=== PATIENT | female | born 1950 | race Caucasian/White ===

== ENCOUNTER 2019-10-09 23:58 | Emergency (ER) | payer MEDICARE, OTHER ==
[~2019-10-09] VITALS: Ht 149.9 cm; Wt 82.1 kg
[2019-10-10] MEDS ORDERED: DEXAMETHASONE 4 MG/ML VIAL PO ONE (00:10)
--- NOTE | 2019-10-10 00:10 | NUR ---
PER PARAS GAITAN PT IS NO R/O FOR COVID 19.
--- NOTE | 2019-10-10 00:15 | NUR ---
69 Y/O F BIBA C/O CONGESTION AND CONSTIPATION X 4 DAYS. PT STATES CONSTIPATION STARTED WHEN SHE STARTED TAKING AMOXICILLIN, WHICH WAS PRESCRIBEDB Y HER DOCTOR FOR THE CONGESTION. LUNG SOUNDS CLEAR UPON AUSCULTATION, AIRWAY INTACT, NO RESPIRATORY DISTRESS NOTED. AAO X4. PMH: HTN, HIGH CHOLESTEROL, THYROID ALLERGIES: COMPAZINE
--- NOTE | 2019-10-10 00:17 | NUR ---
LAB AT BEDSIDE.
[2019-10-10 00:30] LABS: BASOPHILS % (AUTO) 0.5 % (0.0-2.0); EOSINOPHILS # (AUTO) 0.1 K/uL (0-0.4); EOSINOPHILS % (AUTO) 1.6 % (0.0-4.0); HEMATOCRIT 41.7 % (36-48); HEMOGLOBIN 14.2 g/dL (12.0-16.0); LYMPHOCYTES # (AUTO) 1.5 K/uL (2.5-16.5); MEAN CORPUSCULAR HEMOGLOBIN 32 pg (27-31); MEAN CORPUSCULAR HGB CONC 34 g/dL (33-37); MEAN CORPUSCULAR VOLUME 94.7 fL (80-94); MONOCYTES # (AUTO) 0.5 K/uL (0.8-1.0); MONOCYTES % (AUTO) 7.4 % (1.7-9.3); NEUTROPHILS # (AUTO) 4.4 K/uL (1.8-7.7); NEUTROPHILS % (AUTO) 67.5 % (42.2-75.2); PLATELET COUNT (AUTO) 211 K/uL (140-450); RED CELL DISTRIBUTION WIDTH 13.8 % (11.6-13.7); WHITE BLOOD COUNT (AUTO) 6.5 K/uL (4.8-10.8)
--- NOTE | 2019-10-10 00:31 | NUR ---
XR AT BEDSIDE.
[2019-10-10 00:45] LABS: ALBUMIN 3.9 g/dL (3.4-5.0); ANION GAP 14.1 (8-16); CARBON DIOXIDE 26.5 mmol/L (21-32); POTASSIUM 3.6 mmol/L (3.5-5.1); TOTAL BILIRUBIN 0.4 mg/dL (0.0-1.0)
[2019-10-10 01:38] VITALS: BP 157/81
--- NOTE | 2019-10-10 01:38 | NUR ---
Patient discharged with v/s stable. Written and verbal after care instructions given and explained. Patient verbalized understanding. Ambulatory with steady gait. All questions addressed prior to discharge. Advised to follow up with PMD.
== END 2019-10-10 01:38 | disposition home or self-care (01) ==
LOC: MED 23:58
DX: J06.9 Acute upper respiratory infection, unspecified (principal); Z88.8 Allergy status to other drugs, medicaments and biological substances
CPT/HCPCS: 36415; 71045; 80053; 85025; 99284; J1100; Q0092

== ENCOUNTER 2019-10-19 08:09 | Emergency (ER) | payer MEDICARE ==
[~2019-10-19] VITALS: Ht 149.9 cm; Wt 81.6 kg
[2019-10-19 08:14] VITALS: BP 158/88
--- NOTE | 2019-10-19 08:36 | NUR ---
69 Y/O FEMALE FROM HOME C/O INCREASED BLOOD PRESSURE SINCE SHE WOKE UP THIS MORNING. PT STATES SHE WOKE UP AND BP WAS 179/102. DENIES HEADACHE/BLURRED VISION. STATES SHE HAS HAD BILATERAL LEG TINGLING WITH LT KNEE PAIN X 3 DAYS. 2/10 ACHING PAIN. PT ABLE TO AMBULATE. HOB ELEVATED, PT POSITIONED FOR COMFORT.
--- NOTE | 2019-10-19 08:37 | NUR ---
DR CORNEJO AT BEDSIDE EXAMINING PT
[2019-10-19 09:08] VITALS: BP 149/87
--- NOTE | 2019-10-19 09:09 | NUR ---
Patient discharged with v/s stable. Written and verbal after care instructions given and explained. Patient alert, oriented and verbalized understanding of instructions. Ambulatory with steady gait. All questions addressed prior to discharge. ID band removed. Patient advised to follow up with PMD. Rx of TRAMADOL 50MG AND IBUPROFEN 600MG given. Patient educated on indication of medication including possible reaction and side effects. Opportunity to ask questions provided and answered.
== END 2019-10-19 09:09 | disposition home or self-care (01) ==
LOC: MED 08:09
DX: M17.0 Bilateral primary osteoarthritis of knee (principal); E11.9 Type 2 diabetes mellitus without complications; I10 Essential (primary) hypertension; E07.9 Disorder of thyroid, unspecified; Z88.8 Allergy status to other drugs, medicaments and biological substances
CPT/HCPCS: 99283

== ENCOUNTER 2019-10-22 09:44 | Emergency (ER) | payer MEDICARE ==
[~2019-10-22] VITALS: Ht 149.9 cm; Wt 81.2 kg
[2019-10-22 09:51] VITALS: BP 152/73
--- NOTE | 2019-10-22 10:02 | NUR ---
PT AMBULATED TO ER BED 7
--- NOTE | 2019-10-22 10:05 | NUR ---
ERMD BEDSIDE EVALUATING PT
--- NOTE | 2019-10-22 10:06 | NUR ---
69 YO FEMALE CO HIGH BLOOD PRESSURE SINCE THIS MORNING. PT HAS HX OF HTN AND IS TAKING MEDS TO CONTROL. MED STATES THAT SHE TOOK BP ON HOME MACHINE AND IT WAS HIGH. HER PMD ADVISED HER TO COME IN. ALL VSS.
[2019-10-22 10:41] VITALS: BP 131/65
== END 2019-10-22 10:41 | disposition home or self-care (01) ==
LOC: MED 09:44
DX: I10 Essential (primary) hypertension (principal); R05 Cough; E03.9 Hypothyroidism, unspecified
CPT/HCPCS: 99283

== ENCOUNTER 2020-06-19 18:52 | Emergency (ER) | payer MEDICARE ==
[~2020-06-19] VITALS: Ht 149.9 cm; Wt 82.1 kg
[2020-06-19 19:10] VITALS: BP 179/72
--- NOTE | 2020-06-19 20:24 | NUR ---
SEEN AND EXAMINED BY PARAS WITH ORDERS AND CARRIED OUT
[2020-06-19] MEDS ORDERED: CLONIDINE HYDROCHLORIDE 0.1 MG TAB PO ONE (20:25)
[2020-06-19 21:08] LABS: BASOPHILS # (AUTO) 0.1 K/uL (0.00-0.22); EOSINOPHILS # (AUTO) 0.1 K/uL (0-0.4); EOSINOPHILS % (AUTO) 0.7 % (0.0-4.0); HEMATOCRIT 44.9 % (36-48); HEMOGLOBIN 14.9 g/dL (12.0-16.0); LYMPHOCYTES # (AUTO) 1.8 K/uL (2.5-16.5); LYMPHOCYTES % (AUTO) 19.9 % (20.5-51.1); MEAN CORPUSCULAR HEMOGLOBIN 32 pg (27-31); MEAN CORPUSCULAR HGB CONC 33 g/dL (33-37); MEAN CORPUSCULAR VOLUME 95.8 fL (80-94); MONOCYTES # (AUTO) 0.6 K/uL (0.8-1.0); MONOCYTES % (AUTO) 6.9 % (1.7-9.3); NEUTROPHILS # (AUTO) 6.3 K/uL (1.8-7.7); NEUTROPHILS % (AUTO) 71.5 % (42.2-75.2); PLATELET COUNT (AUTO) 276 K/uL (140-450); RED BLOOD CELL COUNT(AUTO) 4.68 MIL/uL (4.20-5.40); RED CELL DISTRIBUTION WIDTH 14.3 % (11.6-13.7); WHITE BLOOD COUNT (AUTO) 8.9 K/uL (4.8-10.8)
[2020-06-19 21:21] LABS: ALBUMIN 4.1 g/dL (3.4-5.0); ANION GAP 10.7 (8-16); CARBON DIOXIDE 31.7 mmol/L (21-32); POTASSIUM 4.4 mmol/L (3.5-5.1); TOTAL BILIRUBIN 0.3 mg/dL (0.0-1.0)
--- NOTE | 2020-06-19 21:30 | NUR ---
MEDICATED PER ERMDS ORDER, TOLERATED WELL
[2020-06-19] MEDS ORDERED: CLONIDINE HYDROCHLORIDE 0.1 MG TAB ONE (21:55)
[2020-06-19 23:40] VITALS: BP 134/67
--- NOTE | 2020-06-20 00:33 | NUR ---
Patient discharged with v/s stable. Written and verbal after care instructions given and explained. Patient alert, oriented and verbalized understanding of instructions. Ambulatory with steady gait. All questions addressed prior to discharge. ID band removed. Patient advised to follow up with PMD. Rx of meclizine and hydrochlorothiazide given. Patient educated on indication of medication including possible reaction and side effects. Opportunity to ask questions provided and answered.
[2020-06-20 15:28] LABS: APPEARANCE,URINE CLEAR (CLEAR); BILIRUBIN,URINE NEGATIVE (NEGATIVE); BLOOD, URINE NEGATIVE (NEGATIVE); COLOR,URINE YELLOW (YELLOW); LEUKOCYTE ESTERASE ,URINE NEGATIVE (NEGATIVE); NITRITE, URINE NEGATIVE (NEGATIVE); UGLUCOSE NEGATIVE (NEGATIVE)
== END 2020-06-20 00:33 | disposition home or self-care (01) ==
LOC: MED 18:52
DX: I10 Essential (primary) hypertension (principal); R07.9 Chest pain, unspecified; E07.9 Disorder of thyroid, unspecified; E11.9 Type 2 diabetes mellitus without complications; Z88.8 Allergy status to other drugs, medicaments and biological substances
CPT/HCPCS: 36415; 71045; 80053; 81002; 81003; 84484; 85025; 99285

== ENCOUNTER 2020-11-13 07:58 | Observation (INO) | payer MEDICARE, SELFPAY ==
[~2020-11-13] VITALS: Ht 149.9 cm; Wt 83.0 kg
[2020-11-13 08:03] VITALS: BP 166/90
--- NOTE | 2020-11-13 08:06 | NUR ---
PT AMBULATED TO BED 04.
--- NOTE | 2020-11-13 08:27 | NUR ---
70 YEAR OLD FEMALE COMPLAINS OF INSOMNIA X 2 AYS. PT STATES THAT SHE ALSO HAS A PRESSURE CHEST PAIN, WITH TINGLING TO LEFT ARM. PT STATES SHE HAD ELEVATED BP AT HOME, BUT BP ON MONITOR 136/65, HR 86. PT AOX4, BREATHING EVEN AND UNLABORED, SKIN WARM AND DRY. BED IN LOWEST POSITION, LOCKED, BED RAIL UPX1. PMH - HTN, HLD, GOUT, HYPOTHYROID ALLERGIES - PROCHLORPERAZINE
[2020-11-13 08:47] LABS: BASOPHILS % (AUTO) 0.7 % (0.0-2.0); EOSINOPHILS % (AUTO) 0.6 % (0.0-4.0); HEMATOCRIT 42.9 % (36-48); HEMOGLOBIN 14.5 g/dL (12.0-16.0); LYMPHOCYTES # (AUTO) 1.2 K/uL (2.5-16.5); LYMPHOCYTES % (AUTO) 20.9 % (20.5-51.1); MEAN CORPUSCULAR HEMOGLOBIN 33 pg (27-31); MEAN CORPUSCULAR HGB CONC 34 g/dL (33-37); MEAN CORPUSCULAR VOLUME 96.8 fL (80-94); MONOCYTES # (AUTO) 0.4 K/uL (0.8-1.0); MONOCYTES % (AUTO) 6.5 % (1.7-9.3); NEUTROPHILS # (AUTO) 4.1 K/uL (1.8-7.7); NEUTROPHILS % (AUTO) 71.3 % (42.2-75.2); PLATELET COUNT (AUTO) 223 K/uL (140-450); RED BLOOD CELL COUNT(AUTO) 4.44 MIL/uL (4.20-5.40); RED CELL DISTRIBUTION WIDTH 14.4 % (11.6-13.7); WHITE BLOOD COUNT (AUTO) 5.7 K/uL (4.8-10.8)
[2020-11-13 09:02] LABS: ASPARTATE AMINOTRANSFERASE 21 U/L (15-37); CARBON DIOXIDE 27.8 mmol/L (21-32); CHLORIDE 105 mmol/L (98-107); GLUCOSE 175 mg/dL (74-106); LIPASE 132 U/L (73-393); POTASSIUM 3.8 mmol/L (3.5-5.1); SODIUM SERUM 142 mmol/L (136-145); TOTAL BILIRUBIN 0.5 mg/dL (0.0-1.0); UREA NITROGEN, BLOOD 14 mg/dL (7-18)
[2020-11-13] MEDS ORDERED: FOS70 PO (09:26)
[2020-11-13] MEDS ORDERED: ATEN25TA7 PO (09:26)
[2020-11-13] MEDS ORDERED: DIT5 PO (09:26)
[2020-11-13] MEDS ORDERED: ALLO100T21 PO (09:26)
[2020-11-13] MEDS ORDERED: HYDR-4004 PO (09:26)
[2020-11-13] MEDS ORDERED: SIMV20TA1 PO (09:26)
[2020-11-13] MEDS ORDERED: LEVO0.124 PO (09:26)
[2020-11-13] MEDS ORDERED: CLON0.1T16 PO (09:34)
[2020-11-13 09:49] LABS: APPEARANCE,URINE CLEAR (CLEAR); BILIRUBIN,URINE NEGATIVE (NEGATIVE); BLOOD, URINE NEGATIVE (NEGATIVE); COLOR,URINE YELLOW (YELLOW); LEUKOCYTE ESTERASE ,URINE NEGATIVE (NEGATIVE); NITRITE, URINE NEGATIVE (NEGATIVE); PH,URINE 6.5 (5.0-9.0); UGLUCOSE NEGATIVE (NEGATIVE)
[2020-11-13] MEDS ORDERED: NITROGLYCERIN 0.4 MG TAB SL ONE (09:50)
[2020-11-13] MEDS ORDERED: ASPIRIN 325 MG TAB PO ONE (09:50)
--- NOTE | 2020-11-13 10:05 | NUR ---
1ST DOSE NITRO GIVEN - HR 60, BP 149/65
--- NOTE | 2020-11-13 10:10 | NUR ---
2ND DOSE NITRO GIVEN FOR CP - HR 59, BP 132/65
--- NOTE | 2020-11-13 10:20 | NUR ---
3RD DOSE HELD, CP RELIEVED - HR 64, BP 127/65
--- NOTE | 2020-11-13 11:31 | NUR ---
APatient will be admitted to care of Dr Dumont. Admited to tele. Will go to room 120b. Belongings list completed. Report to Luis CALLAWAY.
[2020-11-13] MEDS ORDERED: ONDANSETRON 4 MG/2 ML VIAL IM/IVP PRN (11:40)
[2020-11-13] MEDS ORDERED: HYDROcodone/APAP 7.5/325 MG 1 TAB PO PRN (11:40)
[2020-11-13] MEDS ORDERED: ACETAMINOPHEN 325 MG TAB PO PRN (11:40)
[2020-11-13] MEDS ORDERED: DOCUSATE SODIUM 100 MG GELCAP PO PRN (11:40)
[2020-11-13] MEDS ORDERED: ZOLPIDEM 5 MG TAB PO PRN (11:40)
[2020-11-13] MEDS ORDERED: guaiFENesin DM 200/20 MG-10 ML 10 ML UDC PO PRN (11:40)
[2020-11-13] MEDS ORDERED: POTASSIUM CHLORIDE 10 MEQ TABER PO PRN (11:40)
[2020-11-13] MEDS ORDERED: NITROGLYCERIN 0.4 MG TAB SL PRN (11:45)
--- NOTE | 2020-11-13 11:50 | NUR ---
UNABLE TO OBTAIN IV INSERTION AFTER MULTIPLE ATTEMPTS BY 2RN, PARAS MADE AWARE
--- NOTE | 2020-11-13 12:07 | NUR ---
PT TRANSFERED TO FLOOR AT THIS TIME
[2020-11-13 12:20] VITALS: BP 132/68
--- NOTE | 2020-11-13 12:20 | NUR ---
RECEIVED REPORT FROM ER NURSE. PATIENT IS AWAKE ALERT AND COOPERATIVE. RESPIRATION EVEN UNLABORED ON ROOM AIR NO DISTRESS NOTED. DENIES PAIN. SKIN IS WARM AND DRY. IV PATENT AND INTACT. HEART RATE REGULAR. S1&S2 NOTED. LUNGS SOUNDS CLEAR UPON AUSCULTATION. BOWEL SOUNDS PRESENT IN ALL QUADRANTS. ABD SOFT AND NON-TENDER. MRSA SCREEN DONE. VITALS WERE TAKEN. ORIENT PATIENT TO ROOM, STAFF, AND CALL LIGHT. ALL SAFETY MEASURES IN PLACE. BED IS AT LOW POSITION. CALL LIGHT WITHIN REACH. WILL CONTINUE TO MONITOR.
[2020-11-13] MEDS: NACL 0.9% 1,000 ML IV SCH (13:15)
--- NOTE | 2020-11-13 13:31 | NUR ---
NOTIFY PATIENT PCP REDEMPT[facility] KATHERINE ([facility]) REGARDING PATIENT STATUS
[2020-11-13 14:31] LABS: PROTHROMBIN TIME 11.1 secs (10.8-13.4)
[2020-11-13 14:58] LABS: CHOL/HDL RATIO 2.6 (1-4.5); FREE T4 (FREE THYROXINE) 1.38 ng/dL (0.76-1.46); MAGNESIUM 2.2 mg/dL (1.8-2.4); PHOSPHORUS 3.4 mg/dL (2.5-4.9); THYROID STIMULATING HORMONE 1.07 uIU/mL (0.34-3.74)
--- NOTE | 2020-11-13 15:00 | NUR ---
CHECKED ON PATIENT. PROVIDED WATER. NO DISTRESS NOTED. WILL CONTINUE TO MONITOR
[2020-11-13 16:00] VITALS: BP 114/62
--- NOTE | 2020-11-13 17:51 | NUR ---
CHECKED ON PATIENT. PATIENT IS AWAKE, WATCHING TV, NO DISTRESS NOTED
--- NOTE | 2020-11-13 19:45 | NUR ---
RECEIVED PATIENT AWAKE AND ALERT IN BED. PATIENT ON ROOM AIR, NO SOB OR S/S OF DISTRESS AT THIS TIME. PATIENT DENIES CHEST PAIN. PLAN OF CARE DISCUSSED WITH PATIENT. PATIENT VERBALIZED UNDERSTANDING. BED LOWERED WITH CALL LIGHT WITHIN REACH. WILL CONTINUE TO MONITOR
[2020-11-13 19:54] VITALS: BP 118/57
[2020-11-13] MEDS ORDERED: atenoloL 25 MG TAB PO SCH (21:00)
[2020-11-13] MEDS ORDERED: SIMVASTATIN 20 MG TAB PO SCH (21:00)
[2020-11-14 00:14] VITALS: BP 121/58
[2020-11-14 02:11] LABS: BARBITURATE, URINE NEGATIVE ng/ml (NEG <=200); BENZODIAZEPINE, URINE NEGATIVE ng/mL (NEG <=200); CANNABINOID, URINE NEGATIVE ng/mL (NEG <=50); COCAINE, URINE NEGATIVE ng/mL (NEG <=300); OPIATE, URINE NEGATIVE ng/mL (NEG <=2000); PHENCYCLIDINE SCREEN,URINE NEGATIVE ng/mL (NEG <=25)
[2020-11-14 04:50] VITALS: BP 140/60
[2020-11-14] MEDS: NACL 0.9% 1,000 ML IV SCH (04:50)
[2020-11-14] MEDS ORDERED: NON-FORMULARY ITEM (Levothyroxine Sodium* (Synthroid*) 0.125 MG) PO SCH (06:30)
[2020-11-14] MEDS ORDERED: LEVOTHYROXINE 0.1 MG TAB PO SCH (06:30)
[2020-11-14] MEDS ORDERED: LEVOTHYROXINE 0.025 MG TAB PO SCH (06:30)
[2020-11-14 06:48] LABS: BASOPHILS # (AUTO) 0.1 K/uL (0.00-0.22); BASOPHILS % (AUTO) 0.9 % (0.0-2.0); EOSINOPHILS # (AUTO) 0.1 K/uL (0-0.4); EOSINOPHILS % (AUTO) 1.5 % (0.0-4.0); HEMATOCRIT 34.4 % (36-48); HEMOGLOBIN 11.4 g/dL (12.0-16.0); LYMPHOCYTES # (AUTO) 1.5 K/uL (2.5-16.5); LYMPHOCYTES % (AUTO) 26.5 % (20.5-51.1); MEAN CORPUSCULAR HEMOGLOBIN 32 pg (27-31); MEAN CORPUSCULAR HGB CONC 33 g/dL (33-37); MEAN CORPUSCULAR VOLUME 97.4 fL (80-94); MONOCYTES # (AUTO) 0.4 K/uL (0.8-1.0); MONOCYTES % (AUTO) 7.7 % (1.7-9.3); NEUTROPHILS # (AUTO) 3.6 K/uL (1.8-7.7); NEUTROPHILS % (AUTO) 63.4 % (42.2-75.2); PLATELET COUNT (AUTO) 174 K/uL (140-450); RED BLOOD CELL COUNT(AUTO) 3.53 MIL/uL (4.20-5.40); RED CELL DISTRIBUTION WIDTH 14.4 % (11.6-13.7); WHITE BLOOD COUNT (AUTO) 5.7 K/uL (4.8-10.8)
--- NOTE | 2020-11-14 06:48 | NUR ---
PATIENT HAS BEEN SCREENED AND CATEGORIZED LOW NUTRITION RISK. PATIENT WILL BE SEEN WITHIN 7 DAYS OF ADMISSION. 11/20/[address]
[2020-11-14 07:02] LABS: ANION GAP 13.6 (8-16); CARBON DIOXIDE 21.3 mmol/L (21-32); CHLORIDE 117 mmol/L (98-107); CREATININE 0.6 mg/dL (0.6-1.3); GLUCOSE 70 mg/dL (74-106); SODIUM SERUM 149 mmol/L (136-145); UREA NITROGEN, BLOOD 11 mg/dL (7-18)
[2020-11-14 07:21] LABS: POTASSIUM 2.9 mmol/L (3.5-5.1)
--- NOTE | 2020-11-14 07:34 | NUR ---
NOTIFIED DR FORD ABOUT PATIENT'S K LEVEL OF 2.9 AND Ca OF 5.9. RECEIVED ORDERS TO REDRAW LABS
--- NOTE | 2020-11-14 07:35 | NUR ---
PT REPORT GIVEN TO AM NURSE. PT ENDORSED IN STABLE CONDITION
--- NOTE | 2020-11-14 07:35 | NUR ---
ECHO BEING DONE AT BEDSIDE
--- NOTE | 2020-11-14 07:40 | NUR ---
RECEIVED PT AAOX4. NO SOB NOTED. NO C/O PAIN AT THIS TIME. IV TO LT HAND PATENT AND INTACT. CHEST CLEAR ABDOMEN SOFT, BOWEL SOUNDS PRESENT. INSTRUCTED PT TO CALL FOR ASSISTANCE, CALL LIGHT WITHIN REACH, VERBALIZED UNDERSTANDING.
[2020-11-14 08:00] VITALS: BP 152/83
--- NOTE | 2020-11-14 08:15 | NUR ---
ECHO ON GOING AT THE BEDSIDE.
[2020-11-14] MEDS ORDERED: allopurinoL 100 MG TAB PO SCH (09:00)
[2020-11-14] MEDS ORDERED: PANTOPRAZOLE 40 MG TABEC PO SCH (09:00)
[2020-11-14] MEDS ORDERED: OXYBUTYNIN 5 MG TAB PO SCH (09:00)
[2020-11-14] MEDS ORDERED: ECOTRIN 81 MG TABEC PO SCH (09:00)
[2020-11-14] MEDS ORDERED: hydroCHLOROthiazide 25 MG TAB PO SCH (09:00)
[2020-11-14] MEDS ORDERED: lisinopriL 5 MG TAB PO SCH (09:00)
[2020-11-14 09:09] LABS: CHLORIDE 107 mmol/L (98-107); GLUCOSE 131 mg/dL (74-106); SODIUM SERUM 142 mmol/L (136-145); UREA NITROGEN, BLOOD 13 mg/dL (7-18)
--- NOTE | 2020-11-14 09:30 | NUR ---
DR. FORD NOTIFIED OF PT'S LATEST K LEVEL = 4.0
[2020-11-14] MEDS ORDERED: LISI-648 PO (09:44)
[2020-11-14] MEDS ORDERED: ASPI-1856 PO (09:44)
[2020-11-14] MEDS ORDERED: PANT40EC56 PO (09:45)
--- NOTE | 2020-11-14 13:10 | NUR ---
@1300 HRS: DISCHARGE INSTRUCTIONS AND E-SCRIPT GIVEN TO PT WHICH VERBALIZED FULL UNDERSTANDING OF THE INSTRUCTIONS GIVEN AND THE NEED TO FOLLOW UP WITH OWN PCP WITHIN 7 DAYS. ARM BANDS AND IV REMOVED, CANNULA TIP INTACT. @1310 HRS: PT WHEELED TO THE FRONT LOBBY IN STABLE CONDITION. NO COMPLAINTS MADE. PT IS DISCHARGED HOME WITH SON.
== END 2020-11-14 13:10 | disposition home or self-care (01) ==
LOC: MED 07:58 → MTU 11:06
PROVIDERS: ADMIT Family Medicine; ATTEND Family Medicine
DX: R07.89 Other chest pain (principal); Z20.822 Contact with and (suspected) exposure to COVID-19; I10 Essential (primary) hypertension; M10.9 Gout, unspecified; K21.9 Gastro-esophageal reflux disease without esophagitis; E11.9 Type 2 diabetes mellitus without complications; E03.9 Hypothyroidism, unspecified; E78.5 Hyperlipidemia, unspecified; M81.0 Age-related osteoporosis without current pathological fracture; E66.9 Obesity, unspecified; Z79.899 Other long term (current) drug therapy; Z88.8 Allergy status to other drugs, medicaments and biological substances; Z68.37 Body mass index [BMI] 37.0-37.9, adult
CPT/HCPCS: 36415; 71045; 80048; 80053; 80061; 80305; 81003; 82150; 83036; 83690; 83735; 83880; 84100; 84439; 84443; 84484; 85025; 85610; 85730; 87081; 87426; 93005; 93307; 96360; 96361; 96372; 99285; G0378; J1644; 84436; 84479

== ENCOUNTER 2021-01-04 00:40 | Emergency (ER) | payer MEDICARE, SELFPAY ==
[~2021-01-04] VITALS: Ht 157.5 cm; Wt 79.4 kg
[~2021-01-04 00:40] MED LIST: ALLO100T21 PO; ASPI-1856 PO; ATEN25TA7 PO; CLON0.1T16 PO; DIT5 PO; FOS70 PO; HYDR-4004 PO; LEVO0.124 PO; LISI-648 PO; PANT40EC56 PO; SIMV20TA1 PO
[2021-01-04 00:44] VITALS: BP 168/98
--- NOTE | 2021-01-04 00:46 | NUR ---
triaged and waiting in ER lobby.
--- NOTE | 2021-01-04 02:21 | NUR ---
To ED bed 04
[2021-01-04 02:35] VITALS: BP 168/98
--- NOTE | 2021-01-04 02:35 | NUR ---
insomnia x 1 week, biba from home. pt denies any pain or discomfort at this time hx of GERD, HTN, CHF, HLD, gout, diverticulitis allx to compazine
[2021-01-04] MEDS ORDERED: ZOLP5TAB1 PO (02:43)
[2021-01-04] MEDS ORDERED: diphenhydrAMINE 50 MG CAP PO ONE (03:00)
--- NOTE | 2021-01-04 03:06 | NUR ---
Patient discharged with v/s stable. Written and verbal after care instructions given and explained. Patient alert, oriented and verbalized understanding of instructions. Ambulatory with steady gait. All questions addressed prior to discharge. ID band removed. Patient advised to follow up with PMD. Rx of liliana given. Patient educated on indication of medication including possible reaction and side effects. Opportunity to ask questions provided and answered.
== END 2021-01-04 03:06 | disposition home or self-care (01) ==
LOC: MED 00:40
DX: G47.00 Insomnia, unspecified (principal); R20.2 Paresthesia of skin; K21.9 Gastro-esophageal reflux disease without esophagitis; I10 Essential (primary) hypertension; E07.9 Disorder of thyroid, unspecified; Z79.899 Other long term (current) drug therapy; Z79.82 Long term (current) use of aspirin; Z88.8 Allergy status to other drugs, medicaments and biological substances
CPT/HCPCS: 99283; Q0163

== ENCOUNTER 2021-05-21 08:17 | Emergency (ER) | payer MEDICARE ==
[~2021-05-21] VITALS: Ht 147.3 cm; Wt 79.4 kg
[~2021-05-21 08:17] MED LIST changes: -LISI-648 PO; +LISI5TAB24 PO; +ZOLP5TAB1 PO
[2021-05-21 08:23] VITALS: BP 142/60
--- NOTE | 2021-05-21 08:27 | NUR ---
pt ambluated to bed 4
--- NOTE | 2021-05-21 08:32 | NUR ---
DR NAIDU EXAMINING PT
[2021-05-21] MEDS ORDERED: hydrOXYzine PAMOATE 25 MG CAP PO STA (08:40)
--- NOTE | 2021-05-21 08:50 | NUR ---
70 y/o female, pt bib family from home presents to ed with left arm pain with epigastric pain for "a couple days" numbness in bilateral legs. denies n/v/d. lungs sounds clear. abd soft non tender. pt states 6/10 pain. skin warm and dry. pmh: diverticulitis, prediabetic, hyperthyroid, htn, high cholesterol med: see list allergies: prochlorperazine
--- NOTE | 2021-05-21 08:59 | NUR ---
PT TAKEN TO CT VIA W/C
--- NOTE | 2021-05-21 09:11 | NUR ---
Eriberto ulrich in [facility] - 05/21/21 at 0913 by MEDRJJ KIA AT BEDSIDE
--- NOTE | 2021-05-21 09:42 | NUR ---
LAB AT BEDSIDE
[2021-05-21 10:05] LABS: BASOPHILS % (AUTO) 0.8 % (0.0-2.0); EOSINOPHILS % (AUTO) 0.6 % (0.0-4.0); HEMATOCRIT 38.2 % (36-48); HEMOGLOBIN 13.1 g/dL (12.0-16.0); LYMPHOCYTES % (AUTO) 16.3 % (20.5-51.1); MEAN CORPUSCULAR HEMOGLOBIN 33 pg (27-31); MEAN CORPUSCULAR HGB CONC 34 g/dL (33-37); MEAN CORPUSCULAR VOLUME 96.6 fL (80-94); MONOCYTES # (AUTO) 0.4 K/uL (0.8-1.0); MONOCYTES % (AUTO) 6.6 % (1.7-9.3); NEUTROPHILS # (AUTO) 4.4 K/uL (1.8-7.7); NEUTROPHILS % (AUTO) 75.7 % (42.2-75.2); PLATELET COUNT (AUTO) 277 K/uL (140-450); RED BLOOD CELL COUNT(AUTO) 3.95 MIL/uL (4.20-5.40); RED CELL DISTRIBUTION WIDTH 13.6 % (11.6-13.7); WHITE BLOOD COUNT (AUTO) 5.9 K/uL (4.8-10.8)
[2021-05-21 10:19] LABS: ALBUMIN 3.8 g/dL (3.4-5.0); ANION GAP 11.7 (8-16); ASPARTATE AMINOTRANSFERASE 19 U/L (15-37); CARBON DIOXIDE 31.1 mmol/L (21-32); CHLORIDE 101 mmol/L (98-107); CREATININE 1.1 mg/dL (0.6-1.3); GLUCOSE 127 mg/dL (74-106); MAGNESIUM 2.1 mg/dL (1.8-2.4); POTASSIUM 3.8 mmol/L (3.5-5.1); SODIUM SERUM 140 mmol/L (136-145); TOTAL BILIRUBIN 0.3 mg/dL (0.0-1.0); UREA NITROGEN, BLOOD 17 mg/dL (7-18)
[2021-05-21] MEDS ORDERED: LID5T TP (11:08)
[2021-05-21] MEDS ORDERED: DICL20GE TP (11:08)
[2021-05-21] MEDS ORDERED: [UNRECOGNIZED DRUG - CODE] PO (11:08)
[2021-05-21 11:24] VITALS: BP 142/60
--- NOTE | 2021-05-21 11:24 | NUR ---
Patient discharged with v/s stable. Written and verbal after care instructions given and explained. Patient alert, oriented and verbalized understanding of instructions. Ambulatory with steady gait. All questions addressed prior to discharge. ID band removed. Patient advised to follow up with PMD. Rx of ACETAMINOPHEN/DIPHENHYDRAMINE, DICLOFENAC SODIUM, LIDODERM 5% PATCH given. Patient educated on indication of medication including possible reaction and side effects. Opportunity to ask questions provided and answered.
== END 2021-05-21 11:24 | disposition home or self-care (01) ==
LOC: MED 08:17
DX: R20.0 Anesthesia of skin (principal); M54.10 Radiculopathy, site unspecified; G47.00 Insomnia, unspecified; K21.9 Gastro-esophageal reflux disease without esophagitis; I10 Essential (primary) hypertension; E03.9 Hypothyroidism, unspecified; Z79.899 Other long term (current) drug therapy; Z88.8 Allergy status to other drugs, medicaments and biological substances
CPT/HCPCS: 36415; 72125; 80053; 81002; 83735; 84484; 85025; 93005; 99285; Q0177